=== PATIENT | female | born 1970 | race African-American/Black ===

== ENCOUNTER 2017-01-24 06:46 | Day surgery (SDC) | payer OTHER ==
[2017-01-23 12:00] VITALS: BMI 22.8
[2017-01-24] MEDS ORDERED: LIDOCAINE 1%/EPI 1:100000 (50 ML MULTI DOSE VIAL) ONE (07:38)
[2017-01-24] MEDS ORDERED: BUPIVACAINE HCL/PF 0.5% (5MG/ML) 10 ML VIAL ONE (07:39)
[2017-01-24] MEDS ORDERED: MIDAZOLAM HCL 2 MG/2 ML SINGLE DOSE VIAL ONE (07:57)
[2017-01-24] MEDS ORDERED: SUCCINYLCHOLINE CHLORIDE 200 MG/10 ML VIAL ONE (07:58)
[2017-01-24] MEDS ORDERED: PROPOFOL 20 ML ONE ×2 (07:58)
--- NOTE | 2017-01-24 08:04 | HP ---
Satellite H - Chief Complaint Chief Complaint: left knee pain - Past Medical History Allergies/Adverse Reactions: Allergies Allergy/AdvReac Type Severity Reaction Status Date / Time dextromethorphan HBr Allergy Intermediate HIVES,HEADA Verified 01/23/17 12:07 [From Coricidin HBP Cough BOBBY, and Cold] ...LMP: 01/12/17 - Current Medications Current Medications: Home Medications Medication Instructions Recorded Colesevelam HCl [Welchol (Nf)] 3,750 mg PO DAILY 01/23/17 Ferrous Gluconate [Ferate] 27 mg PO DAILY 01/23/17 Montelukast Na [Singulair -] 10 mg PO HS 01/23/17 Omeprazole 40 mg PO DAILY 01/23/17 Oxycodone HCl/Acetaminophen 1 - 2 tab PO Q6H #50 tab MDD 8 01/24/17 [Percocet 5-325 mg Tablet -] Satellite Physical Exam - Physical Examination Vital Signs: Vital Signs Period Temp Pulse Resp BP Sys/Frazier Pulse Ox Last 24 Hr 98.0 F-98.0 F 62-62 20-20 117-117/65-65 97 General Appearance: Well Nourished, Well Developed, Alert & Oriented x3 ENT: Clear Lung: Normal air movement Heart: Regular rate & rhythm Extremities: Other (left knee- + swelling, + ttp ,decr rom, + mcmurrays, + apleys, nvi MRI + mmt) Neurological: Intact, Alert, Oriented Satellite Impression/Plan - Impression/Plan Impression: left knee internal derangement Operative Procedure: left knee arthroscopy Date to be Performed: 01/24/17
--- NOTE | 2017-01-24 08:32 | OP ---
Operative Note - Note: Operative Date: 01/24/17 ([facility]) Pre-Operative Diagnosis: left knee internal derangement Operation: left knee arthroscopy with PMM Post-Operative Diagnosis: Same as Pre-op Surgeon: Tremayne Perez Anesthesiologist/PACKER DENTURE: Flora Antunez MD Anesthesia: General, Local Specimens Removed: shavings Estimated Blood Loss (mls): 5 Operative Report Dictated: Yes
[2017-01-24] MEDS ORDERED: ONDANSETRON 4 MG/2 ML VIAL IVPUSH PRN (09:05)
[2017-01-24] MEDS ORDERED: oxyCODONE HCL 5 MG TABLET PO PRN (09:15)
[2017-01-24] MEDS ORDERED: LACTATED RINGERS SOLUTION 1,000 ML IV SCH (09:15)
[2017-01-24 09:39] VITALS: TEMP 97.3
--- NOTE | 2017-01-24 10:21 | SPEC ---
DATE OF OPERATION: 01/24/2017 PREOPERATIVE DIAGNOSIS: Internal derangement, left knee. POSTOPERATIVE DIAGNOSIS: Internal derangement, left knee. PROCEDURE: Arthroscopy, left knee, with partial medial meniscectomy. SURGICAL ATTENDING: Tremayne Perez MD ANESTHESIA: LMA. CLOSURE: 3-0 nylon. COMPLICATIONS: None. CONDITION: To recovery room in stable condition. DESCRIPTION OF OPERATIVE PROCEDURE: Patient was taken to the operating room and general anesthesia with LMA was administered by the anesthesiologist. Left lower extremity was prepped and draped in usual sterile fashion. The supralateral and medial lateral infrapatellar portal sites were infiltrated with 1% Xylocaine with epinephrine. Supralateral portal was made with a 15 blade blunt trocar. The left knee was aspirated and inflated with a cocktail of 10 mL of 1% Xylocaine with 0.5% Marcaine and 20 mL of arthroscopic saline. Medial and lateral infrapatellar portals were then made with a 15 blade blunt trocar. The scope was placed in the lateral infrapatellar portal and up into the suprapatellar pouch. Pouch was visualized to be clean. The medial and lateral gutters were visualized to be clean. The undersurface of the patella and trochlea were visualized to be intact. With valgus stress on the knee, the medial compartment was entered and medial meniscus was visualized, probed, and found to have a complex tear of the posterior horn. This was debrided back to smooth and stable meniscal tissue using meniscal biters and athroscopic shaver. Medial femoral condyle was run and found to be intact as was the medial tibial plateau. At 90 degrees the ACL was visualized, probed and found to be intact. In the figure four position, the lateral compartment was entered. Lateral meniscus was visualized, probed and found to be intact. The lateral femoral condyle was run and found to be intact as was the lateral tibial plateau. The knee was irrigated with copious amounts of irrigation. The portals were closed with 4-0 nylon. Prior to closure of the supralateral portal, 20 mL of 0.5% Marcaine was infused through the outflow portal prior to pulling the cannula. Sterile pressure dressing was placed over the knee. Patient was awakened from anesthesia and transferred to recovery room in stable condition. No complications. Estimated blood loss was negligible. TREMAYNE PEREZ M.D. [id number]
[2017-01-24] MEDS ORDERED: oxyCODONE HCL 5 MG TABLET ONE (10:29)
[2017-01-24 12:51] VITALS: BP 112/72; PULSE 58
--- NOTE | 2017-01-27 13:36 | PATH ---
Surgical Pathology Report Patient Name: EMILI FONSECA [facility]. Rec. #: [id number] /Age/Gender: 1970 (Age: 46) / F Account: [id number] Location: [facility] SURGICAL Taken: 01/24/2017 Received: 01/24/2017 Reported: 01/27/2017 Physicians: Tremayne Perez M.D. Specimen(s) Received SHAVINGS LEFT KNEE Clinical History Meniscus tear left knee Final Diagnosis KNEE, LEFT, ARTHROSCOPIC SHAVING: FIBROCARTILAGE WITH MYXOID DEGENERATIVE CHANGES, ALONG WITH PORTIONS OF SYNOVIUM. Electronically Signed Andi Blanc M.D. Gross Description Received in formalin, labeled "left knee shavings," is a 2.0 x 1.5 x 0.3 cm. aggregate of almzaan-yellow soft tissue fragments. The specimen is entirely submitted in one cassette. /01/24/201701/24/2017
== END 2017-01-24 12:45 | disposition home or self-care (01) ==
LOC: JASU-SURG 06:46
PROVIDERS: ATTEND Orthopaedic Surgery
PROC: 0SBD4ZZ Excision of Left Knee Joint, Percutaneous Endoscopic Approach (ICD-10-PCS; principal; 2017-01-24 08:00)
DX: S83.232A Complex tear of medial meniscus, current injury, left knee, initial encounter (principal); X58.XXXA Exposure to other specified factors, initial encounter; Y93.9 Activity, unspecified; Y92.9 Unspecified place or not applicable
CPT/HCPCS: 84703; 88304-TC; 94760

== ENCOUNTER 2017-02-24 07:32 | Day surgery (SDC) | payer OTHER ==
[2017-02-20 10:37] VITALS: BMI 22.8
--- NOTE | 2017-02-24 08:32 | HP ---
Past Medical History - Primary Care Physician PCP:: Himanshu Meneses - Admission Chief Complaint: 46yo female with menometrorrhagia and fibroid uterus History of Present Illness: Very heavy menses, anemia History Source: Patient, Medical Record Limitations to Obtaining History: No Limitations - Past Medical History Cardiovascular: No: AFIB, Aneurysm, Aortic Insufficiency, Aortic Stenosis, CAD, CHF, Deep Vein Thrombosis, HTN, Hyperlipdemia, AK, Mitral Insufficiency, Mitral Stenosis, Murmur, Pulmonary Hypertension, Other Pulmonary: No: Asthma, Bronchitis, Cancer, COPD, O2 Dependent, Pneumonia, Previously Intubated, Pulmonary Embolus, Pulmonary Fibrosis, Sleep Apnea, Other Gastrointestinal: No: Ascites, Cancer, Constipation, Crohn's Disease, Diverticulitis, Diverticulosis, Esophageal Varices, Gastritis, GERD, GI Bleed, Hemorrhoids, Hiatal Hernia, Inflamatory Bowel Disease, Irritable Bowel Disease, Pancreatitis, Peptic Ulcer Disease, Ulcerative Colitis, Other Hepatobiliary: No: Cirrhosis, Cholelithiasis, Cholecystitis, Choledocholithiasis , Hepatitis A, Hepatitis B, Hepatitis C, Other Renal/: No: Renal Failure, Renal Inusuff, BPH, Cancer, Hematuria, Hemodialysis , Neurogenic Bladder, Renal Calculi, UTI, Other ...Para: 1 () Heme/Onc: Yes: Anemia Infectious Disease: No: AIDS, C-Diff, Herpes Zoster, HIV, MRSA, STD's, Tuberculosis, VREF, Other Psych: No: Addictions, Anxiety, Bipolar, Depression, Panic, Psychosis, Schizophrenia, Other Musculoskeletal: No: Bursitis, Chronic low back pain, Hemiparesis, Hemiplegia, Osteoarthritis, Paraplegia, Other Rheumatology: No: Fibromyalgia, Gout, Lupus, Rheumatoid Arthritis, Sarcoidosis, Vasculitis, Other ENT: No: Allergic Rhinitis, Sinusitis, Other Endocrine: No: [place]'s Disease, Neda's Disease, Diabetes Insipidus, Diabetes Mellitus, Hyperparathyroidism, Hyperthyroidism, Hypothyroidism, Osteopenia, SIADH, Other Dermatology: No: Basal Cell, Cellulitis, Eczema, Melanoma, Psoriasis, Squamous Cell, Other Additional Medical History: Hyperlipidemia - Past Surgical History Past Surgical History: Yes: Arthrosocopy Hx Myomectomy: No Hx Transabdominal Cerclage: No - Smoking History Smoking history: Never smoked Aproximately how many cigarettes per day: 0 - Alcohol/Substance Use Hx Alcohol Use: Yes (occasional) History of Substance Use: reports: None - Social History Usual Living Arrangement: Yes: Alone ADL: Independent History of Recent Travel: No Home Medications - Allergies Allergies/Adverse Reactions: Allergies Allergy/AdvReac Type Severity Reaction Status Date / Time dextromethorphan HBr Allergy Intermediate HIVES,HEADA Verified 02/24/17 07:47 [From Coricidin HBP Cough BOBBY, and Cold] - Home Medications Home Medications: Ambulatory Orders Colesevelam HCl [Welchol (Nf)] 3,750 mg PO DAILY 01/23/17 Ferrous Gluconate [Ferate] 27 mg PO DAILY 01/23/17 Montelukast Na [Singulair -] 10 mg PO HS 01/23/17 Omeprazole 40 mg PO DAILY 01/23/17 Family Disease History - Family Disease History Family History: Denies Review of Systems - Review of Systems Constitutional: reports: No Symptoms Eyes: reports: No Symptoms HENT: reports: No Symptoms Neck: reports: No Symptoms Cardiovascular: reports: No Symptoms Respiratory: reports: No Symptoms Gastrointestinal: reports: No Symptoms Genitourinary: reports: No Symptoms Breasts: reports: No Symptoms Reported Musculoskeletal: reports: No Symptoms Integumentary: reports: No Symptoms Neurological: reports: No Symptoms Endocrine: reports: No Symptoms Hematology/Lymphatic: reports: No Symptoms Psychiatric: reports: No Symptoms Pain Intensity: 0 Physical Exam-TABLE SETTER Vital Signs: Vital Signs Temperature 98.4 F 02/24/17 07:58 Pulse Rate 70 02/24/17 07:58 Respiratory Rate 20 02/24/17 07:58 Blood Pressure 116/69 02/24/17 07:58 O2 Sat by Pulse Oximetry (%) 100 02/24/17 07:53 Constitutional: Yes: Well Nourished, No Distress, Calm Eyes: Yes: WNL, Conjunctiva Clear HENT: Yes: WNL, Atraumatic, Normocephalic Neck: Yes: WNL, Supple, Trachea Midline Cardiovascular: Yes: WNL, Regular Rate and Rhythm Respiratory: Yes: WNL, Regular, CTA Bilaterally Gastrointestinal: Yes: WNL, Normal Bowel Sounds, Soft ...Rectal Exam: Yes: WNL Renal/: Yes: WNL Pelvis: Yes: WNL External Genitalia: Yes: Normal Internal Exam Deferred: No Vaginal Exam: Yes: Normal Cervix: Yes: Normal Uterus: Yes: Enlarged Adnexa: Normal: Left, Right Musculoskeletal: Yes: WNL Extremities: Yes: WNL Edema: No Integumentary: Yes: WNL Neurological: Yes: WNL, Alert, Oriented ...Motor Strength: WNL Psychiatric: Yes: WNL, Alert, Oriented Imaging - Results Ultrasound: Report Reviewed Assessment/Plan 46yp P1 with menometrorrhagia admitted for hysteroscopy, D&C. We discussed the risks, benefits, alternatives of surgery including but not limited to infx, bleeding, scarring, pain, perforation, infertility, etc. The pt requested to proceed with surgery.
[2017-02-24] MEDS ORDERED: LIDOCAINE HCL 1%, 10 MG/ML (20ML VIAL) ONE (08:35)
--- NOTE | 2017-02-24 09:04 | OP ---
Operative Note - Note: Operative Date: 02/24/17 Pre-Operative Diagnosis: Menometrorrhagia, fibroid uterus, anemia Operation: Hysteroscopy, D&C, polypectomy Findings: Enlarged uterus ~8-9wk, endometrial polyp, otherwise normal uterine cavity Post-Operative Diagnosis: Other (Menometrorrhagia, fibroid uterus, anemia, endometrial polyp) Surgeon: Himanshu Meneses Anesthesiologist/AUTO WHEEL ALIGNMENT SPECIALIST: Andres Bob Anesthesia: General Specimens Removed: Endometrial curettings, uterine polyp Estimated Blood Loss (mls): 10 Drains, Volume Out (mls): 0 Blood Volume Replaced (mls): 0 Fluid Volume Replaced (mls): 800 Operative Report Dictated: Yes
[2017-02-24] MEDS ORDERED: PROMETHAZINE HCL 25 MG/1 ML VIAL IVPUSH PRN (09:07)
[2017-02-24] MEDS ORDERED: ONDANSETRON 4 MG/2 ML VIAL IVPUSH PRN (09:07)
[2017-02-24] MEDS ORDERED: ACETAMINOPHEN 325 MG TABLET (FP) PO PRN (09:08)
[2017-02-24] MEDS ORDERED: IBUPROFEN 600 MG TABLET (FP) PO PRN (09:08)
[2017-02-24] MEDS ORDERED: LACTATED RINGERS SOLUTION 1,000 ML IV SCH (09:15)
[2017-02-24 10:33] VITALS: TEMP 97.5
[2017-02-24 12:01] VITALS: BP 104/58; PULSE 58
[2017-02-24] MEDS ORDERED: ONDANSETRON 4 MG/2 ML VIAL ONE (12:13)
[2017-02-24] MEDS ORDERED: ONDANSETRON 4 MG/2 ML VIAL IVPB ONE (12:19)
--- NOTE | 2017-02-25 10:12 | OP ---
DATE OF OPERATION: 02/24/2017 PREOPERATIVE DIAGNOSIS: Menometrorrhagia, fibroid uterus, anemia. POSTOPERATIVE DIAGNOSIS: Menometrorrhagia, fibroid uterus, anemia, endometrial polyp. PROCEDURE: Hysteroscopy, dilation and curettage, polypectomy. SURGEON: Hallie Ray MD TANK PUMPER: None. ANESTHESIOLOGIST: Andres Bbo MD ANESTHESIA: General. COMPLICATIONS: None. IV FLUIDS: 800 mL crystalloid. ESTIMATED BLOOD LOSS: 10 mL. PATHOLOGY: Endometrial curettings, endometrial polyp. FINDINGS: Examination under anesthesia revealed a slightly enlarged retroverted uterus consistent with approximately 8 or 9 weeks' gestation. No pelvic or adnexal masses were noted. Hysteroscopy revealed a small endometrial polyp near the fundus of the uterus. Otherwise, normal endometrial cavity. DESCRIPTION OF PROCEDURE: The patient was met preoperatively. Risks, benefits, and alternatives of surgery were discussed including, but not limited to, infection, bleeding, scarring, perforation, amenorrhea, injury to underlying or surrounding structures, and need for additional surgery to repair, treat any complications. The patient verbalized her understanding and requested to proceed with the surgery. The patient was then brought to the OR with the IV running. She was placed on the surgical table in the supine position. General anesthesia was achieved without difficulty. The patient was then placed in a dorsal lithotomy position using adjustable Kevin stirrups. She was prepped and draped in the usual sterile fashion. A time-out procedure was conducted as per standard protocol. The surgeon then proceeded with the surgery. A sterile speculum was then introduced inside the vagina with good visualization of the cervix. The cervix was grasped with a single-tooth tenaculum. The cervical os was dilated to accommodate size 13 Patel dilator. A diagnostic hysteroscope was then introduced inside the uterine cavity with the findings as described above. The hysteroscope was then removed. The cervical os was dilated to accommodate size 25 Patel dilator. Endometrial curettage was then performed. The tissue was submitted to Pathology for evaluation. Once the endometrial curettage was completed, a hysteroscope was once again introduced into the uterine cavity. There were no further endometrial polyps noted. Good hemostasis was confirmed. All of the instruments were them removed from the patient. Once again, good hemostasis was confirmed. Sponge, lap, and instrument counts were correct. The patient was transferred to recovery room in stable condition and awake. HALLIE RAY M.D. [id number]
--- NOTE | 2017-02-25 14:35 | PATH ---
Surgical Pathology Report Patient Name: EMILI FONSECA [facility]. Rec. #: [id number] /Age/Gender: 1970 (Age: 46) / F Account: [id number] Location: [facility] SURGICAL Taken: 02/24/2017 Received: 02/24/2017 Reported: 02/25/2017 Physicians: Himanshu Meneses M.D. Specimen(s) Received ENDOMETRIAL POLYP Clinical History Menorrhagia/fibroid uterus Final Diagnosis ENDOMETRIUM AND POLYP, CURETTAGE: POLYPOID FRAGMENTS OF DISORDERED PROLIFERATIVE ENDOMETRIUM WITH FEATURES SUGGESTIVE OF ENDOMETRIAL POLYP. BACKGROUND PROLIFERATIVE ENDOMETRIUM WITH FOCAL STROMAL BREAKDOWN CHANGE. FRAGMENTS OF BENIGN SMOOTH MUSCLE. Electronically Signed Amauri Noel M.D. Gross Description Received in formalin, labeled "endometrial curettings sloughing endometrial polyp" and multiple fragments of almazan-red soft tissue a 4.0 x 2.0 x 0.5 cm in aggregate dimension. The specimen is submitted entirely in 2 cassettes. AF/02/24/2017 final/02/24/2017
== END 2017-02-24 12:43 | disposition home or self-care (01) ==
LOC: JASU-SURG 07:32
PROVIDERS: ATTEND Obstetrics & Gynecology
PROC: 0UB98ZX Excision of Uterus, Via Natural or Artificial Opening Endoscopic, Diagnostic (ICD-10-PCS; principal; 2017-02-24 08:00)
PROC: 0UDB8ZX Extraction of Endometrium, Via Natural or Artificial Opening Endoscopic, Diagnostic (ICD-10-PCS; 2017-02-24 08:00)
DX: N92.1 Excessive and frequent menstruation with irregular cycle (principal); D25.9 Leiomyoma of uterus, unspecified; N84.0 Polyp of corpus uteri; D64.9 Anemia, unspecified
CPT/HCPCS: 84703; 88305-TC; 94760